=== PATIENT | female | born 1965 | race Caucasian/White ===

== ENCOUNTER 2018-08-30 23:47 | Emergency (ER) | payer OTHER ==
[~2018-08-30 23:47] MED LIST: EPINEPHrine 10 ML SYRINGE (0.1 MG/ML) ONE
[2018-08-30] MEDS ORDERED: EPINEPHrine 10 ML SYRINGE (0.1 MG/ML) ONE (23:50)
--- NOTE | 2018-08-31 00:11 | ED ---
General Adult HPI - General Chief complaint: Cardiac Arrest/CPR Stated complaint: Cardiac arrest Source: EMS Mode of arrival: EMS Limitations: language barrier, altered mental status, physical limitation - Related Data Allergies Allergy/AdvReac Type Severity Reaction Status Date / Time Unable to Assess Allergy Unverified 08/31/18 00:42 Review of Systems ROS Statement: Those systems with pertinent positive or pertinent negative responses have been documented in the HPI. ROS Other: All systems not noted in ROS Statement are negative. Past Medical History Past Medical History: No Reported History History of Any Multi-Drug Resistant Organisms: None Reported Past Surgical History: No Surgical Hx Reported Past Psychological History: No Psychological Hx Reported Smoking Status: Unknown if ever smoked Past Alcohol Use History: None Reported Past Drug Use History: None Reported General Exam Limitations: language barrier, altered mental status, physical limitation Course Vital Signs 08/30/18 08/30/18 08/31/18 23:49 23:56 00:04 Pulse Rate 82 81 Respiratory 12 12 14 Rate Blood Pressure 166/115 166/115 O2 Sat by Pulse 100 99 Oximetry 08/31/18 08/31/18 08/31/18 00:10 00:20 00:30 Pulse Rate 81 79 Respiratory 12 12 Rate Blood Pressure 169/103 169/103 145/107 O2 Sat by Pulse 99 97 Oximetry Procedures - Central Line Placement Left IJ Consent Obtained: emergent situation Patient Placed on Monitor/Pulse Ox: Yes MD Prep: mask, gown, gloves Central Line Prep: Povidone-Iodine 1% Ultrasound Used for Placement: Yes Central Line Lumen Inserted: triple Bloods Obtained for Lab: No Central Line Position: good blood return, all ports aspirated, flushed, capped, sutured in place with 3-0 nylon Dressing Applied: Tegaderm Patient Tolerated Procedure: well Complications: none Medical Decision Making - Medical Decision Making Dictation was produced using [employer] dictation software. please excuse any grammatical, word or spelling errors. Chief Complaint: 53-year-old female presents with cardiac arrest. History of Present Illness: 83-year-old female presents with cardiac arrest. According to EMS. Patient was found down at home. Allegedly down time was approximately 20 minutes. Fire department arrived on scene performed CPR immediately. Patient was hooked to monitor found to be in asystole. EMS arrived 5 minutes after fire department. They attach patient to look is device. Patient was given 1 round of epinephrine with return of spontaneous circulation. Total time of CPR was approximately 15 minutes. Repeat vital signs was obtained by EMS found to be within acceptable limits. Patient was also intubated. An attempt was made by EMS to transfer patient to [facility] however they were diverted and patient was brought to our facility. At this point there is no family for history of present illness. EMS reports that patient has not seen a doctor in 20 years and has history of diverticulitis. Unable to obtain ROS secondary to mental status PHYSICAL EXAM: General Impression: Obtunded HEENT: Dry mucous members, intubated, ET tube in vocal cords, no dilated pupils Cardiovascular: Heart regular rate and rhythm, S1&S2 audible, no murmurs, rubs or gallops Chest: Bilateral breath sounds Abdomen: No distention, no organomegaly Musculoskeletal: Pulses present and equal in all extremities, no peripheral edema Neurological: No pinpoint pupils, no clonus ED course: 53-year-old female presents after cardiac arrest. Vital signs upon arrival are within acceptable limits. Patient maintaining good saturations on Ventilation. Patient is normotensive. EKG doesn't show any signs of ischemia. Patient had stable vital signs upon arrival. Patient unresponsive to painful stimuli. However she did not have any dilated pupils. Central line was placed under ultrasound guidance. NG tube was placed. ET tube was confirmed with direct visualization. X-ray was performed showing right mainstem intubation. ET tube was retracted 4 cm. Computed tomography scan of the head showed cerebral edema. CT C-spine chest abdomen pelvis were also obtained. There appeared to be some gas around aorta is likely secondary to small perforation from NG tube placement. Otherwise imaging studies were unremarkable. showed up later and provided more history. He reports that patient had not been feeling well for past several days. He reports she has not eaten in 2 days. Denies that patient has expressed any suicidal or homicidal ideation. She however does have history of bipolar disease. At home patient had severe bouts of diarrhea prior to the arrest discussed patient case with Dr. Nova who does not feel patient is appropriate for ICU admission at our facility because he do not have a neurologist. He does not recommend patient be transferred to [facility] but does recommend patient be transferred to [facility]. Patient case with who is willing to accept the transfer. At this point patient's hemodynamic stable. She does have internal jugular central venous catheter. Patient to be transferred. EKG interpretation: Ventricular rate 83, normal sinus rhythm,. Interval 116, care 78, QTC 479. No OH prolongation, no QTC prolongation, no ST or T-wave changes noted. Overall, this EKG is unremarkable - Lab Data Result diagrams: 08/31/18 00:01 08/31/18 00:01 Lab Results 08/30/18 08/31/18 08/31/18 Range/Units 23:54 00:01 00:01 WBC 24.8 H (3.8-10.6) k/uL RBC 5.15 (3.80-5.40) m/uL Hgb 15.7 (11.4-16.0) gm/dL Hct 49.7 H (34.0-46.0) % MCV 96.6 (80.0-100.0) fL MCH 30.4 (25.0-35.0) pg MCHC 31.5 (31.0-37.0) g/dL RDW 12.8 (11.5-15.5) % Plt Count 292 (150-450) k/uL Neutrophils % 89 % Lymphocytes % 7 % Monocytes % 3 % Eosinophils % 1 % Basophils % 0 % Neutrophils # 22.0 H (1.3-7.7) k/uL Lymphocytes # 1.7 (1.0-4.8) k/uL Monocytes # 0.8 (0-1.0) k/uL Eosinophils # 0.1 (0-0.7) k/uL Basophils # 0.1 (0-0.2) k/uL Hypochromasia Slight PT (9.0-12.0) sec INR (<1.2) Sample Site ABG pH (7.35-7.45) ABG pCO2 (35-45) mmHg ABG pO2 (83-108) mmHg ABG HCO3 (21-25) mmol/L ABG Total CO2 (19-24) mmol/L ABG O2 Saturation (94-97) % ABG Base Excess mmol/L Bertin Test FiO2 % Sodium (137-145) mmol/L Potassium (3.5-5.1) mmol/L Chloride (98-107) mmol/L Carbon Dioxide (22-30) mmol/L Anion Gap mmol/L BUN (7-17) mg/dL Creatinine (0.52-1.04) mg/dL Est GFR (CKD-EPI)AfAm (>60 ml/min/1.73 sqM) Est GFR (CKD-EPI)NonAf (>60 ml/min/1.73 sqM) Glucose (74-99) mg/dL POC Glucose (mg/dL) 270 H (75-99) mg/dL POC Glu Home Health Scheduler ID [facility] Plasma Lactic Acid Андрей 14.0 H* (0.7-2.0) mmol/L Calcium (8.4-10.2) mg/dL Magnesium (1.6-2.3) mg/dL Total Bilirubin (0.2-1.3) mg/dL AST (14-36) U/L ALT (9-52) U/L Alkaline Phosphatase (38-126) U/L Ammonia 72 H (<30) umol/L Creatine Kinase (30-135) U/L Troponin I (0.000-0.034) ng/mL Total Protein (6.3-8.2) g/dL Albumin (3.5-5.0) g/dL Lipase (23-300) U/L Urine Color Urine Appearance (Clear) Urine pH (5.0-8.0) Ur Specific [place] (1.001-1.035) Urine Protein (Negative) Urine Glucose (UA) (Negative) Urine Ketones (Negative) Urine Blood (Negative) Urine Nitrite (Negative) Urine Bilirubin (Negative) Urine Urobilinogen (<2.0) mg/dL Ur Leukocyte Esterase (Negative) Urine RBC (0-5) /hpf Ur Squamous Epith Cells (0-4) /hpf Ur Transition Epith Cell (0-1) /hpf Amorphous Sediment (None) /hpf Urine Bacteria (None) /hpf Hyaline Casts (0-2) /lpf Urine Mucus (None) /hpf Stool Occult Blood (Negative) Salicylates mg/dL Acetaminophen ug/mL 08/31/18 08/31/18 08/31/18 Range/Units 00:01 00:01 00:01 WBC (3.8-10.6) k/uL RBC (3.80-5.40) m/uL Hgb (11.4-16.0) gm/dL Hct (34.0-46.0) % MCV (80.0-100.0) fL MCH (25.0-35.0) pg MCHC (31.0-37.0) g/dL RDW (11.5-15.5) % Plt Count (150-450) k/uL Neutrophils % % Lymphocytes % % Monocytes % % Eosinophils % % Basophils % % Neutrophils # (1.3-7.7) k/uL Lymphocytes # (1.0-4.8) k/uL Monocytes # (0-1.0) k/uL Eosinophils # (0-0.7) k/uL Basophils # (0-0.2) k/uL Hypochromasia PT 11.1 (9.0-12.0) sec INR 1.1 (<1.2) Sample Site ABG pH (7.35-7.45) ABG pCO2 (35-45) mmHg ABG pO2 (83-108) mmHg ABG HCO3 (21-25) mmol/L ABG Total CO2 (19-24) mmol/L ABG O2 Saturation (94-97) % ABG Base Excess mmol/L Bertin Test FiO2 % Sodium 140 (137-145) mmol/L Potassium 4.8 (3.5-5.1) mmol/L Chloride 103 (98-107) mmol/L Carbon Dioxide 17 L (22-30) mmol/L Anion Gap 20 mmol/L BUN 15 (7-17) mg/dL Creatinine 0.92 (0.52-1.04) mg/dL Est GFR (CKD-EPI)AfAm 82 (>60 ml/min/1.73 sqM) Est GFR (CKD-EPI)NonAf 71 (>60 ml/min/1.73 sqM) Glucose 258 H (74-99) mg/dL POC Glucose (mg/dL) (75-99) mg/dL POC Glu Home Health Scheduler ID Plasma Lactic Acid Андрей (0.7-2.0) mmol/L Calcium 9.0 (8.4-10.2) mg/dL Magnesium 2.6 H (1.6-2.3) mg/dL Total Bilirubin 0.6 (0.2-1.3) mg/dL AST 286 H (14-36) U/L ALT 178 H (9-52) U/L Alkaline Phosphatase 118 (38-126) U/L Ammonia (<30) umol/L Creatine Kinase 1584 H* (30-135) U/L Troponin I 0.420 H* (0.000-0.034) ng/mL Total Protein 6.6 (6.3-8.2) g/dL Albumin 3.7 (3.5-5.0) g/dL Lipase 70 (23-300) U/L Urine Color Urine Appearance (Clear) Urine pH (5.0-8.0) Ur Specific [place] (1.001-1.035) Urine Protein (Negative) Urine Glucose (UA) (Negative) Urine Ketones (Negative) Urine Blood (Negative) Urine Nitrite (Negative) Urine Bilirubin (Negative) Urine Urobilinogen (<2.0) mg/dL Ur Leukocyte Esterase (Negative) Urine RBC (0-5) /hpf Ur Squamous Epith Cells (0-4) /hpf Ur Transition Epith Cell (0-1) /hpf Amorphous Sediment (None) /hpf Urine Bacteria (None) /hpf Hyaline Casts (0-2) /lpf Urine Mucus (None) /hpf Stool Occult Blood (Negative) Salicylates mg/dL Acetaminophen ug/mL 08/31/18 08/31/18 08/31/18 Range/Units 00:01 00:01 00:01 WBC (3.8-10.6) k/uL RBC (3.80-5.40) m/uL Hgb (11.4-16.0) gm/dL Hct (34.0-46.0) % MCV (80.0-100.0) fL MCH (25.0-35.0) pg MCHC (31.0-37.0) g/dL RDW (11.5-15.5) % Plt Count (150-450) k/uL Neutrophils % % Lymphocytes % % Monocytes % % Eosinophils % % Basophils % % Neutrophils # (1.3-7.7) k/uL Lymphocytes # (1.0-4.8) k/uL Monocytes # (0-1.0) k/uL Eosinophils # (0-0.7) k/uL Basophils # (0-0.2) k/uL Hypochromasia PT (9.0-12.0) sec INR (<1.2) Sample Site ABG pH (7.35-7.45) ABG pCO2 (35-45) mmHg ABG pO2 (83-108) mmHg ABG HCO3 (21-25) mmol/L ABG Total CO2 (19-24) mmol/L ABG O2 Saturation (94-97) % ABG Base Excess mmol/L Bertin Test FiO2 % Sodium (137-145) mmol/L Potassium (3.5-5.1) mmol/L Chloride (98-107) mmol/L Carbon Dioxide (22-30) mmol/L Anion Gap mmol/L BUN (7-17) mg/dL Creatinine (0.52-1.04) mg/dL Est GFR (CKD-EPI)AfAm (>60 ml/min/1.73 sqM) Est GFR (CKD-EPI)NonAf (>60 ml/min/1.73 sqM) Glucose (74-99) mg/dL POC Glucose (mg/dL) (75-99) mg/dL POC Glu Home Health Scheduler ID Plasma Lactic Acid Андрей (0.7-2.0) mmol/L Calcium (8.4-10.2) mg/dL Magnesium (1.6-2.3) mg/dL Total Bilirubin (0.2-1.3) mg/dL AST (14-36) U/L ALT (9-52) U/L Alkaline Phosphatase (38-126) U/L Ammonia (<30) umol/L Creatine Kinase (30-135) U/L Troponin I (0.000-0.034) ng/mL Total Protein (6.3-8.2) g/dL Albumin (3.5-5.0) g/dL Lipase (23-300) U/L Urine Color Yellow Urine Appearance Cloudy H (Clear) Urine pH 6.5 (5.0-8.0) Ur Specific [place] 1.010 (1.001-1.035) Urine Protein 3+ H (Negative) Urine Glucose (UA) 2+ H (Negative) Urine Ketones Trace H (Negative) Urine Blood Large H (Negative) Urine Nitrite Negative (Negative) Urine Bilirubin Negative (Negative) Urine Urobilinogen <2.0 (<2.0) mg/dL Ur Leukocyte Esterase Negative (Negative) Urine RBC 60 H (0-5) /hpf Ur Squamous Epith Cells 7 H (0-4) /hpf Ur Transition Epith Cell 1 (0-1) /hpf Amorphous Sediment Rare H (None) /hpf Urine Bacteria Rare H (None) /hpf Hyaline Casts 5 H (0-2) /lpf Urine Mucus Rare H (None) /hpf Stool Occult Blood Positive H (Negative) Salicylates <1.0 mg/dL Acetaminophen <10.0 ug/mL 08/31/18 Range/Units 01:49 WBC (3.8-10.6) k/uL RBC (3.80-5.40) m/uL Hgb (11.4-16.0) gm/dL Hct (34.0-46.0) % MCV (80.0-100.0) fL MCH (25.0-35.0) pg MCHC (31.0-37.0) g/dL RDW (11.5-15.5) % Plt Count (150-450) k/uL Neutrophils % % Lymphocytes % % Monocytes % % Eosinophils % % Basophils % % Neutrophils # (1.3-7.7) k/uL Lymphocytes # (1.0-4.8) k/uL Monocytes # (0-1.0) k/uL Eosinophils # (0-0.7) k/uL Basophils # (0-0.2) k/uL Hypochromasia PT (9.0-12.0) sec INR (<1.2) Sample Site Right Radial ABG pH 7.11 L* (7.35-7.45) ABG pCO2 55 H (35-45) mmHg ABG pO2 >400 H (83-108) mmHg ABG HCO3 17 L (21-25) mmol/L ABG Total CO2 19 (19-24) mmol/L ABG O2 Saturation 99.8 H (94-97) % ABG Base Excess -12.1 mmol/L Bertin Test Yes FiO2 100 % Sodium (137-145) mmol/L Potassium (3.5-5.1) mmol/L Chloride (98-107) mmol/L Carbon Dioxide (22-30) mmol/L Anion Gap mmol/L BUN (7-17) mg/dL Creatinine (0.52-1.04) mg/dL Est GFR (CKD-EPI)AfAm (>60 ml/min/1.73 sqM) Est GFR (CKD-EPI)NonAf (>60 ml/min/1.73 sqM) Glucose (74-99) mg/dL POC Glucose (mg/dL) (75-99) mg/dL POC Glu Home Health Scheduler ID Plasma Lactic Acid Андрей (0.7-2.0) mmol/L Calcium (8.4-10.2) mg/dL Magnesium (1.6-2.3) mg/dL Total Bilirubin (0.2-1.3) mg/dL AST (14-36) U/L ALT (9-52) U/L Alkaline Phosphatase (38-126) U/L Ammonia (<30) umol/L Creatine Kinase (30-135) U/L Troponin I (0.000-0.034) ng/mL Total Protein (6.3-8.2) g/dL Albumin (3.5-5.0) g/dL Lipase (23-300) U/L Urine Color Urine Appearance (Clear) Urine pH (5.0-8.0) Ur Specific [place] (1.001-1.035) Urine Protein (Negative) Urine Glucose (UA) (Negative) Urine Ketones (Negative) Urine Blood (Negative) Urine Nitrite (Negative) Urine Bilirubin (Negative) Urine Urobilinogen (<2.0) mg/dL Ur Leukocyte Esterase (Negative) Urine RBC (0-5) /hpf Ur Squamous Epith Cells (0-4) /hpf Ur Transition Epith Cell (0-1) /hpf Amorphous Sediment (None) /hpf Urine Bacteria (None) /hpf Hyaline Casts (0-2) /lpf Urine Mucus (None) /hpf Stool Occult Blood (Negative) Salicylates mg/dL Acetaminophen ug/mL Disposition Clinical Impression: Cardiac arrest Disposition: OTHER INSTITUTION NOT DEFINED Condition: Critical Referrals: None,Stated [Primary Care Provider] - 1-2 days Time of Disposition: 02:00 - Out of Hospital Transfer - Req. Specs Out of Hospital Transfer - Requested Specifics: Other Emergency Center ([facility] because we have no neurology)
[2018-08-31 00:12] LABS: Glucose,Whole Blood 270 mg/dL (75-99)
[2018-08-31 00:18] LABS: Basophils # (A) 0.1 k/uL (0-0.2); Basophils % (A) 0 %; Eosinophils # (A) 0.1 k/uL (0-0.7); Eosinophils % (A) 1 %; HCT 49.7 % (34.0-46.0); HGB 15.7 gm/dL (11.4-16.0); Hypochromasia Slight; Lymphocytes # (A) 1.7 k/uL (1.0-4.8); Lymphocytes % (A) 7 %; MCH 30.4 pg (25.0-35.0); MCHC 31.5 g/dL (31.0-37.0); MCV 96.6 fL (80.0-100.0); Mean Platelet Volume 7.6; Monocytes # (A) 0.8 k/uL (0-1.0); Monocytes % (A) 3 %; Neutrophils % (A) 89 %; Platelet Count 292 k/uL (150-450); RBC 5.15 m/uL (3.80-5.40); RDW 12.8 % (11.5-15.5); WBC 24.8 k/uL (3.8-10.6)
--- NOTE | 2018-08-31 00:19 | XR ---
EXAMINATION TYPE: XR chest 1V portable DATE OF EXAM: 08/31/2018 COMPARISON: None HISTORY: Cardiac arrest TECHNIQUE: Single frontal view of the chest is obtained. FINDINGS: Heart and mediastinum are normal. Endotracheal tube is 1 cm into the right mainstem bronch us. Nasogastric tube has tip in the body of the stomach. The lungs are clear. There is no heart failu re. There is no pleural effusion. IMPRESSION: Malposition of the endotracheal tube. Normal heart and lungs.
[2018-08-31 00:30] LABS: Albumin 3.7 g/dL (3.5-5.0); Magnesium 2.6 mg/dL (1.6-2.3); Potassium 4.8 mmol/L (3.5-5.1); Total Bilirubin 0.6 mg/dL (0.2-1.3); Total Protein 6.6 g/dL (6.3-8.2)
[2018-08-31 00:39] LABS: INR 1.1 (<1.2); Prothrombin Time 11.1 sec (9.0-12.0)
--- NOTE | 2018-08-31 00:46 | CT ---
EXAMINATION TYPE: CT brain latonya sin DATE OF EXAM: 08/31/2018 COMPARISON: None HISTORY: AMS CT DLP: 1400.5 mGycm Automated exposure control for dose reduction was used. TECHNIQUE: CT scan of the head and cervical spine are performed without contrast. FINDINGS: There is decreased sulci for the patient's age. This could relate to diffuse cerebral ellen ma. Ventricles appear small for the patient's age. There is no mass effect nor midline shift. There i s no sign of intracranial hemorrhage. The calvarium is intact. There is mucosal thickening in the eth moid and sphenoid sinuses. There is limited pneumatization of the mastoid sinuses. Cervical vertebra have normal spacing and alignment. Posterior elements are intact. Skull base is int act. Nasogastric tube and endotracheal tube are noted. There is no evidence of a fracture. IMPRESSION: Negative CT scan of the cervical spine. possible cerebral edema.. Mastoiditis. Ethmoid and sphenoid sinusitis.
[2018-08-31] MEDS ORDERED: AMPICILLIN-SULBACTAM 3 GM in SODIUM CHLORIDE 0.9% 100 ML IVPB STA (00:55)
[2018-08-31] MEDS ORDERED: VANCOMYCIN 1,500 MG in SODIUM CHLORIDE 0.9% 250 ML IVPB STA (00:56)
--- NOTE | 2018-08-31 00:58 | CT ---
EXAMINATION TYPE: CT ChestAbdPelvis wo con DATE OF EXAM: 08/31/2018 COMPARISON: None HISTORY: CARDIAC ARREST;UNRESPONSIVE CT DLP: 669.4 mGycm. Automated Exposure Control for Dose Reduction was Utilized. TECHNIQUE: CT scan of the thorax, abdomen and pelvis is performed without IV contrast. FINDINGS: There is endotracheal tube noted. Lungs are clear of infiltrate. There is no pleural effusion. Heart size is normal. There is no pericardial effusion. There is nasogastric tube noted with the tip in the stomach. There is no mediastinal adenopathy. There are no hilar masses. The liver and spleen appear normal. Bile ducts are not dilated. Pancreas appears normal. Gallbladder appears normal. There is small amount of air around the lower thoracic aorta at the diaphragm. There is retroperitoneal air on the right side below the right adrenal gland. The right kidney is absent. L eft kidney shows normal size and contour. There is no hydronephrosis. There is no retroperitoneal neli nopathy. The bladder distends smoothly. There is no free fluid in the pelvis. The uterus is tilted to the left side. The small bowel appears normal. Terminal ileum appears normal. Cecum is in the pelvis . The appendix appears normal. Appendix is near the midline. There is no sign of free air. There is n o ascites. The lumbar spine and thoracic spine. Intact. There is no compression fracture. The shoulder joints are intact. The ribs appear intact. The bony pelvis is intact. IMPRESSION: There is retroperitoneal air around the lower thoracic and upper abdominal aorta as well as on the ri ght side adjacent to the right adrenal gland. 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 There is some tiny amount of air near t he nasogastric tube near the gastroesophageal junction. The possibility of a small perforation of the esophagus should be considered. The results of this exam and the CT brain and cervical spine was dis cussed with ER physician at 1:00 AM.
[2018-08-31 01:08] LABS: Acetaminophen <10.0 ug/mL; Salicylate <1.0 mg/dL
[2018-08-31 01:52] LABS: ABG Base Excess -12.1 mmol/L; ABG HCO3 17 mmol/L (21-25); ABG Oxygen Saturation 99.8 % (94-97); ABG PCO2 55 mmHg (35-45); ABG PO2 >400 mmHg (83-108); ABG TCO2 19 mmol/L (19-24)
[2018-08-31 01:54] LABS: Amorphous Sediment,Urine Rare /hpf; Appearance,Urine Cloudy (Clear); Bacteria,Urine Rare /hpf; Bilirubin,Urine Negative (Negative); Blood,Urine Large (Negative); Color,Urine Yellow; Glucose,Urine (UA) 2+ (Negative); Hyaline Casts,Urine 5 /lpf (0-2); Ketones,Urine Trace (Negative); Leukocyte Esterase,Urine Negative (Negative); Mucus,Urine Rare /hpf; Nitrite,Urine Negative (Negative); PH, Urine 6.5 (5.0-8.0); Protein,Urine 3+ (Negative); RBC,Urine 60 /hpf (0-5); Squamous Epithelial Cell,Urine 7 /hpf (0-4); Transitional Epi Cells,Urine 1 /hpf (0-1); Urobilinogen,Urine <2.0 mg/dL (<2.0)
[2018-08-31 01:56] LABS: ABG PH 7.11 (7.35-7.45)
[2018-08-31] MEDS ORDERED: SODIUM CHLORIDE 0.9% 1,000 ML IV STA ×2 (01:58→02:00)
[2018-08-31 02:01] LABS: Amphetamine Screen,Urine Not Detected (NotDetected); Barbiturate Screen,Urine Not Detected (NotDetected); Benzodiazepines Screen,Urine Not Detected (NotDetected); Cocaine Screen,Urine Not Detected (NotDetected); Methadone Screen, Urine Not Detected (NotDetected); Opiate Screen,Urine Not Detected (NotDetected); Oxycodone Screen, Urine Not Detected (NotDetected); Phencyclidine Screen,Urine Not Detected (NotDetected); Tricyclic Antidepressant,Urine Not Detected (NotDetected); Urn Cannabinoid Scrn Not Detected (NotDetected)
[2018-08-31] MEDS ORDERED: EPINEPHrine 1 MG/ML 1 ML AMP IV STA (02:04)
--- NOTE | 2018-08-31 02:10 | XR ---
EXAMINATION TYPE: XR chest 1V confirm line [facility] DATE OF EXAM: 08/31/2018 COMPARISON: 08/31/2018 HISTORY: Check line placement TECHNIQUE: Single frontal view of the chest is obtained. FINDINGS: Endotracheal tube is 4 cm from the erica. There is left jugular catheter with tip in the lower superior vena cava. There are chest leads. There is no pneumothorax. There is nasogastric tube noted. Lungs are clear. There is no pleural effusion. IMPRESSION: Tubing in good position. No cardiopulmonary disease.
[2018-08-31] MEDS ORDERED: NOREPINEPHRINE 16 MG in SODIUM CHLORIDE 0.9% 250 ML IV SCH (02:15)
[2018-08-31 02:20] VITALS: RESP 16; TEMP 90.5
[2018-08-31 04:33] VITALS: BP 91/76; PULSE 72
== END 2018-08-31 03:00 | disposition short-term general hospital (02) ==
LOC: EC 23:47
DX: I46.9 Cardiac arrest, cause unspecified (principal)
CPT/HCPCS: 99285; 36556; 31500; 36415 ×2; 36600; 94002; 93005; 80053; 82140; 82550; 82805; 83605; 83690; 83735; 84484; 85025; 85610; 82272; 81001; 87040; 80306; 83520 ×2; 87070; 87086; 87205; 71045; 72125; 70450; 71250; 74176; 96365; 96367; 96368; 96361; J3370; J0171; J0295